=== PATIENT | female | born 2005 | race African-American/Black ===

== ENCOUNTER 2024-07-05 17:10 | Inpatient (IN) ==
--- NOTE | 2024-07-05 17:58 | Emergency Department Note ---
Impression & Plan Depression with suicidal ideation ED Provider Note NAME: SHAHAB LLOYD AGE: 18 SEX: F : 2005 ARRIVES VIA: Walk-In INFORMANT: Patient, CAPS report ED PROVIDER(S): Hunter Salguero MD CHIEF COMPLAINT: Suicidal ideation with plan, referral from's MEDICAL DECISION MAKING: Patient presents as a referral from Due to concern for suicidal ideation with plan. Blood work was obtained. Patient has very mild leukopenia with a normal hemoglobin and platelet count kidney function is unremarkable. Electrolytes grossly unremarkable. TSH normal. Urinalysis shows blood but the patient is currently on her menstrual period. UPT negative. Salicylate Tylenol alcohol negative. COVID-negative UDS negative. Patient was seen medically cleared seen and evaluated by psych correctional case records supervisor and referrals were made. Patient was accepted to [facility] for voluntary inpatient psychiatric treatment. Discussion w/ other healthcare providers: ED case management Prior /Outside records reviewed: None Differential diagnosis: Mood disorder, infection, hypoglycemia, electrolyte abnormalities, dehydration, medication side effect among others were considered. Diagnostics, as interpreted by me: ECG: None Medical decision rules: Suicide risk severity score Imaging studies: None HPI: Patient presents due to concern for mental wellness. The patient was seen in Today and had endorsed some suicidal ideation with plan to slit her wrist and bleed out. Patient does have a prior history of inpatient treatment for suicidal ideation. The patient was started on Lexapro 2 weeks ago. Thought that maybe the patient was having worsening suicidal ideation secondary to her medication. The patient also reports that she has had increasing academic stress and regular. Patient states that she is performing well but it is stressful. The patient denies any HI or AVH. She has been sleeping too much. She states her appetite is poor. Patient does not have any access to guns or weapons here on campus. Patient reports that there are guns in her home in her hometown but not here on campus. The patient does feel safe at her campus residence. Patient states she is currently on her menstrual period. PAST MEDICAL HISTORY: Depression PAST SURGICAL HISTORY: No pertinent past surgical history SOCIAL HISTORY: [employer] student. Speaks Amharic. Denies alcohol tobacco or drug use. HOME MEDICATIONS: See Below ALLERGIES: See Below VITALS: See Below PHYSICAL EXAMINATION: GENERAL: NAD, non-toxic. Wearing glasses. EYE EXAM: Normal conjunctiva. PERRL, no anisocoria and EOM's grossly intact w/o pain. OROPHARYNX: Moist mucus membranes, grossly normal dentition. NECK: Trachea midline, no stridor. LUNGS: Clear to auscultation. Normal chest wall mechanics. HEART: NSR, no MRG. ABDOMEN: Abdomen soft, non-tender, no masses, no rebound or guarding. BACK: No CVA TTP. SKIN: No rashes and no bruising. UPPER EXTREMITIES: Upper extremities are grossly normal. LOWER EXTREMITIES: Grossly normal, no edema. NEURO EXAM: A&O x3, cranial nerves II-XII grossly intact, normal speech, moves all 4 extremities. Psych: Positive SI with plan, denies HI or AVH. Past Med/Surg History Problem List Depression with suicidal ideation (Acute) Social History Smoking Status: Never smoker Preferred Language: Amharic Communication Ability: Effective Hammersmith Helper Required: No Beliefs That Will Affect Care: None Feels Safe at Home: Yes Gender Identity: Female Assistive Devices: Glasses Allergies Allergies Allergy/AdvReac Type Severity Reaction Status Date / Time No Known Allergies Allergy Unverified 07/05/24 19:39 Home Meds Home Medications Medication Instructions Recorded Confirmed dextroamphetamine-amphetamine 5 mg 5 mg PO QAM 07/05/23 07/05/24 tablet escitalopram oxalate 10 mg tablet 10 mg PO DAILY 07/05/24 07/05/24 topiramate 25 mg tablet 25 mg PO PM 07/05/24 07/05/24 Results & Data (ED) Vital Signs Vital Signs - 24 hr 07/05/24 17:12 07/05/24 18:56 07/05/24 20:00 Temperature 36.9 C 36.4 C Temperature Source Temporal Artery Scan Oral Pulse Rate 79 Pulse Rate [Finger] 74 Respiratory Rate 20 20 Respiratory Effort / Characteristics Non-Labored Spontaneous Non-Labored Respiratory Depth Normal Normal Blood Pressure 106/66 Blood Pressure [Right Arm] 109/74 Blood Pressure Mean 79 Blood Pressure Mean [Right Arm] 85 Pulse Oximetry 98 100 Oxygen Delivery Method Room Air Room Air Sepsis Recent Fever Within 48 Hours No Sepsis New/Unexplained Change in Mental Status No Sepsis Action Taken by Nursing No Action Required 07/05/24 20:28 Temperature Temperature Source Pulse Rate Pulse Rate [Finger] Respiratory Rate Respiratory Effort / Characteristics Non-Labored Respiratory Depth Normal Blood Pressure Blood Pressure [Right Arm] Blood Pressure Mean Blood Pressure Mean [Right Arm] Pulse Oximetry Oxygen Delivery Method Sepsis Recent Fever Within 48 Hours Sepsis New/Unexplained Change in Mental Status Sepsis Action Taken by Half-Way Medications Current Medication List: was personally reviewed by me Laboratory Data Attestation: I reviewed the patient's lab results. 07/05/24 17:38 07/05/24 17:38 Lab Results 07/05/24 07/05/24 07/05/24 Range/Units 17:24 17:38 17:58 WBC 4.60 L (4.8-10.8) K/ul RBC 3.84 L (4.20-5.40) M/uL Hgb 12.5 (12.0-16.0) g/dl Hct 36.1 L (37.0-47.0) % MCV 94.0 (80.0-100.0) fL MCH 32.6 (25.0-34.0) pg MCHC 34.6 (32.0-36.0) g/dL RDW Std Deviation 42.5 (36.4-46.3) fL RDW Coeff of Kaylyn 12.3 (11.5-14.5) % Plt Count 264 (130-400) K/uL MPV 11.4 (9.4-12.4) fL Immature Gran % (Auto) 0.2 % Neut % (Auto) 29.6 % Lymph % (Auto) 65.0 % [place] % (Auto) 4.8 % Eos % (Auto) 0.0 % Baso % (Auto) 0.4 % Neut # (Auto) 1.36 L (1.40-6.50) K/uL Lymph # (Auto) 2.99 (1.20-3.40) K/uL [place] # (Auto) 0.22 (0.11-0.59) K/uL Eos # (Auto) 0.00 (0.00-0.50) K/uL Baso # (Auto) 0.02 (0.00-0.20) K/uL Immature Gran # (Auto) 0.01 (0.01-0.20) K/uL Sodium 138 (136-145) mmol/L Potassium 3.6 (3.5-5.1) mmol/L Chloride 110 H (98-107) mmol/L Carbon Dioxide 20 L (21-32) mmol/L Anion Gap 8 (3-11) BUN 7 (6-23) mg/dl Creatinine 0.78 (0.6-1.2) mg/dl Est Cr Clr Drug Dosing 86.4 ml/min eGFR 112.14 BUN/Creatinine Ratio 9.0 L (10-20) Glucose 79 (70-99(Fasting)) mg/dl Calcium 9.6 (8.6-10.3) mg/dl Total Bilirubin 0.8 (0.2-1.0) mg/dl AST 16 (13-39) U/L ALT 8 (7-52) U/L Alkaline Phosphatase 53 (34-104) U/L Total Protein 7.5 (6.0-8.3) gm/dl Albumin 4.4 (3.4-5.0) gm/dl Globulin 3.1 (2.5-4.0) gm/dl Albumin/Globulin Ratio 1.4 (0.9-2) TSH 1.014 (0.300-4.500) uIu/ml Urine Color Yellow Urine Appearance Cloudy A (Clear) Urine pH 5.5 (4.5-7.5) Ur Specific [place] 1.020 (1.000-1.030) Urine Protein 1+ H (Negative) Urine Glucose (UA) Negative (Negative) Urine Ketones Trace H (Negative) Urine Blood 3+ H (Negative) Urine Nitrite Negative (Negative) Urine Bilirubin Negative (Negative) Urine Urobilinogen Negative (Negative) Ur Leukocyte Esterase 1+ H (Negative) Urine WBC (Auto) 0-5 (0-5) /hpf Urine RBC (Auto) >20 H (0-2) /hpf U Hyaline Cast (Auto) 0-2 (0-2) /lpf U Epithel Cells (Auto) 3-5 H (0-2) /hpf Urine Bacteria (Auto) None Seen (None Seen) Urine Test Negative (Negative) Salicylates < 3.0 L (3.0-30) mg/dl Urine Opiates Screen Neg (Neg) Ur Methadone, Qual Neg (Neg) Urine Fentanyl Screen Neg (Neg) Acetaminophen < 3 L (10-30) ug/ml Urine Barbiturates Neg (Neg) Ur Phencyclidine (PCP) Neg (Neg) U Amphetamin/Meth Scrn Neg (Neg) MDMA (Ecstasy) Screen Neg (Neg) U Benzodiazepines Scrn Neg (Neg) Ur Cocaine Metabolite Neg (Neg) U Marijuana (THC) Screen Neg (Neg) Ethyl Alcohol mg/dL < 10.0 (<10.0) mg/dl SARS-CoV-2, RNA, NAAT NEGATIVE (NEGATIVE) Administered Medications Hydroxyzine HCl (Hydroxyzine Hcl 25 Mg Tab) 25 mg PO Q4H PRN PRN Reason: Anxiety Stop: 08/04/24 20:59 Last Admin: 07/05/24 21:30 Dose: 25 mg Documented By: JAGDEEP Discharge Plan Visit Data Chief Complaint: Mental Health Evaluation Stated Complaint: MENTAL HEALTH EVAL ED Provider: Hunter Salguero Discharge Problem: Depression with suicidal ideation Patient Disposition: Admitted As Inpatient Discharge Instructions Interventions: ED Discharge Assessment Last Done: 07/05/24 21:17
[2024-07-05 18:15] LABS: Pregnancy Test, Urine Negative (Negative)
[2024-07-05 18:20] LABS: Hematocrit (blood only) 36.1 % (37.0-47.0); Hemoglobin 12.5 g/dl (12.0-16.0); Mean Corpuscular Hemoglobin 32.6 pg (25.0-34.0); Mean Corpuscular Hgb Conc 34.6 g/dL (32.0-36.0); Mean Platelet Volume 11.4 fL (9.4-12.4); Platelet Count 264 K/uL (130-400); RDW Coefficient of Variation 12.3 % (11.5-14.5); RDW Standard Deviation 42.5 fL (36.4-46.3); Red Blood Count 3.84 M/uL (4.20-5.40)
[2024-07-05 18:27] LABS: Appearance Urine Cloudy (Clear); Bacteria Urine Automated None Seen (None Seen); Bilirubin Urine Negative (Negative); Blood Urine 3+ (Negative); Cast Urine Automated 0-2 /lpf (0-2); Color Urine Yellow; Glucose Urine UA Negative (Negative); Ketones Urine Trace (Negative); Leukocyte Esterase Urine 1+ (Negative); Nitrite Urine Negative (Negative); Protein Urine 1+ (Negative); RBC Urine Automated >20 /hpf (0-2); Urobilinogen Urine Negative (Negative); WBC Urine Automated 0-5 /hpf (0-5); pH Urine 5.5 (4.5-7.5)
[2024-07-05 18:32] LABS: Potassium 3.6 mmol/L (3.5-5.1)
[2024-07-05 18:41] LABS: Basophils # (auto) 0.02 K/uL (0.00-0.20); Basophils % (auto) 0.4 %; Immature Granulocytes # (auto) 0.01 K/uL (0.01-0.20); Immature Granulocytes % (auto) 0.2 %; Lymphocytes # (auto) 2.99 K/uL (1.20-3.40); Monocytes # (auto) 0.22 K/uL (0.11-0.59); Monocytes % (auto) 4.8 %; Neutrophils # (auto) 1.36 K/uL (1.40-6.50); Neutrophils % (auto) 29.6 %
[2024-07-05 18:47] LABS: Thyroid Stimulating Hormone 1.014 uIu/ml (0.300-4.500)
[2024-07-05 19:18] LABS: Albumin Level 4.4 gm/dl (3.4-5.0); Bilirubin,Total 0.8 mg/dl (0.2-1.0); Calcium 9.6 mg/dl (8.6-10.3)
[2024-07-05 19:20] LABS: Acetaminophen < 3 ug/ml (10-30); Salicylate < 3.0 mg/dl (3.0-30)
[2024-07-05 19:24] LABS: Albumin Globulin Ratio 1.4 (0.9-2); Creatinine Clr Calc Pharmacy 86.4 ml/min; Globulin 3.1 gm/dl (2.5-4.0); Total Protein 7.5 gm/dl (6.0-8.3)
[2024-07-05 19:27] LABS: Amphetamines+Metham, Urine Neg (Neg); Barbiturates, Urine Neg (Neg); Benzodiazepine, Urine Neg (Neg); Cocaine, Urine Neg (Neg); Fentanyl, Urine Neg (Neg); MDMA (Ecstacy), Urine Neg (Neg); Marijuana, Urine Neg (Neg); Methadone, Urine Neg (Neg); Opiate, Urine Neg (Neg); Phencyclidine, Urine Neg (Neg)
[2024-07-05] MEDS ORDERED: BISMUTH SUBSALICYLATE 262 MG CHEW PO PRN (21:00)
[2024-07-05] MEDS ORDERED: hydrOXYzine HCl 25 MG TAB PO PRN (21:00)
[2024-07-05] MEDS ORDERED: SODIUM CHLORIDE 0.65% NA SOLN 45 ML (OCEAN) PRN (21:00)
[2024-07-05] MEDS ORDERED: ALUMINUM/MAGNESIUM SUSP 30 ML UDC PO PRN (21:00)
[2024-07-05] MEDS ORDERED: MAGNESIUM HYDROXIDE SUSP 30 ML UDC PO PRN (21:00)
[2024-07-05] MEDS: hydrOXYzine HCl 25 MG TAB PO PRN (21:30)
[2024-07-06] MEDS: ESCITALOPRAM OXALATE 10 MG TAB PO SCH (09:31)
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
[2024-07-07] MEDS: ARIPiprazole 5 MG TAB PO SCH (12:14)
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
[2024-07-07] MEDS: SUMAtriptan succinate 25 MG TAB PO ONE (14:24)
[2024-07-07] MEDS: hydrOXYzine HCl 25 MG TAB PO SCH (21:43)
[2024-07-08 07:29] LABS: Estimated Average Glucose 80 mg/dl; Hemoglobin A1C 4.4 % (4.5-5.6)
[2024-07-08 07:51] LABS: Chol HDL Ratio 2.7 (0-5)
--- NOTE | 2024-07-08 10:04 | Psychiatric Progress Note ---
Date of Service July 08, 2024 Impression / Recommendations Impression Dwight Dickens is a 18 y/o woman, [employer], lives with roommate h/o depression, body dysmorphia who self presents with suicidal ideations with plans and recent self harm (hitting self) in the context of anxiety, depression. She was admitted on 07/05/24 21:00 on a 201 voluntary commitment for suicidal ideation. A: Ongoing mood symptoms but depression lessening and working on ways to cope with anxiety using new CBT/DBT skills. Tolerating abilify so far without any side effects. HbA1c and fasting lipid panel reviewed and appropriate to continue with abilify. She requested we review side effects again for abilify. Reviewed side effects including but not limited to: movement (TD, NMS), cardiac (QTc prolongation), and metabolic (stroke, insulin resistance) and necessity for fasting lipid and glucose labwork (reviewed normal and reassuring for ongoing use) and AIMS done with score of 0. Overall, I spent a total of 40 minutes on this case including meeting with the patient, reviewing the chart, nursing report, multidisciplinary team meeting, orders, and documentation. (1) Depression with suicidal ideation: (2) Post traumatic stress disorder (PTSD): (3) Borderline personality disorder: (4) Cluster B personality disorder: (5) Body dysmorphic disorder: (6) Migraines: Plan 07/08/2024: Continue current medications and tx plan. 07/07/2024: Start aripiprazole 2.5 mg daily. Start sumatriptan 25 mg daily as needed for migraines. 07/06/2024:The patient was admitted to the [facility] ([facility] mental health unit) on q15 min checks (behavioral with suicide precautions) for safety. The patient will participate in group, recreational, and milieu therapies and will be offered additional individual and family sessions as clinically appropriate. -Continue home Escitalopram 10mg daily -Hold home Adderall, Topiramate -Questionnaires: [place] Borderline PD screener -Labs: Vit D, Vit B12, HgbA1C, Lipid panel Inventory Assets Strengths: Intelligent, Medication adherent Needs: Improved self esteem, coping skills Suicide Risk Level Suicide Risk Level: Moderate (q15 min suicide checks) (SI and depression on admission but mood improving, SI lessening and feels safe in the hospital and able to ask for support. 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 She was admitted on 07/05/24 21:00 on a 201 voluntary commitment for suicidal ideation. Chief Complaint "Like a rollercoaster". Review of Systems Sleep Information Total Hours of Sleep: 6.45 Sleep Comments: HS Vistaril Meal Information Percent Meal Consumed - Breakfast: 100 Percent Meal Consumed - Lunch: 85 Percent Meal Consumed - Dinner: 80 Subjective Subjective Patient was seen & assessed and interval progress reviewed with treatment team nursing and social work. Rated mood as "sleepy and anxious" last evening. Called yesterday about [employer] but unfortunately [facility] doesn't accept her insurance. Today mood has been variable. She wants to continue to work on ways to manage her "emotional regulation" and cope with anxiety. She's trying to use coping skills in favor of feeling like she needs to rely on prn medication. No side effects from abilify so far. SI lessening. Physical Exam Psychiatric Orientation: alert and oriented x 3 Apperance: appropriately dressed and appropriately groomed Eye Contact: + fair eye contact Motor Behavior: no abnormal motor movements Speech: normal rate/rhythm/volume of speech Affect: + constricted affect Mood: + depressed mood and + anxious mood Thought Process: goal directed thought process Thought Content: reality based without delusions Suicidal Thoughts: denies suicidal plan; + reports suicidal thoughts (inte rmittent, lessening) Homicidal Thoughts: denies homicidal thoughts Hallucinations: no auditory hallucinations and no visual hallucinations Insight: + fair insight Judgment: + fair judgement Vital Signs (Past 24 Hours) Last Vital Signs Temp 37.0 C 07/08/24 06:48 Pulse 86 07/07/24 06:51 Resp 16 07/08/24 06:48 BP 104/72 07/08/24 06:48 Pulse Ox 98 07/08/24 06:48 O2 Del Method Room Air 07/08/24 06:48 Results & Data ([facility]) Laboratory Results Laboratory Results - last 24 hr 07/08/24 06:54 Estimat Average Glucose 80 Hemoglobin A1c 4.4 L Triglycerides 64 Cholesterol 111 LDL Cholesterol, Calc 57 VLDL Cholesterol, Calc 13 HDL Cholesterol 41 Cholesterol/HDL Ratio 2.7 Vitamin B12 233 25-OH Vitamin D Total 20.7 Current Inpatient Medications Current Inpatient Medications: Current Inpatient Medications Acetaminophen (Acetaminophen 325 Mg Tab) 650 mg PO Q4H PRN PRN Reason: Headache or Minor Fever Stop: 08/04/24 20:59 Al Hydrox/Mg Hydrox/Simethicone (Aluminum/Magnesium Susp 30 Ml Udc) 30 ml PO Q4H PRN PRN Reason: GI Upset Stop: 08/04/24 20:59 Aripiprazole (Aripiprazole 5 Mg Tab) 2.5 mg PO QAM [facility] Stop: 08/06/24 11:44 Last Admin: 07/08/24 09:27 Dose: 2.5 mg Bismuth Subsalicylate (Bismuth Subsalicylate 262 Mg Chew) 2 tab PO Q30M PRN PRN Reason: Loose Stool/Diarrhea Stop: 08/04/24 20:59 Escitalopram Oxalate (Escitalopram Oxalate 10 Mg Tab) 10 mg PO QAM AUDREY Stop: 08/05/24 08:59 Last Admin: 07/08/24 09:27 Dose: 10 mg Hydroxyzine HCl (Hydroxyzine Hcl 25 Mg Tab) 25 mg PO Q4H PRN PRN Reason: Anxiety Stop: 08/04/24 20:59 Last Admin: 07/05/24 21:30 Dose: 25 mg Hydroxyzine HCl (Hydroxyzine Hcl 25 Mg Tab) 50 mg PO HSZ AUDREY Stop: 08/06/24 21:59 Last Admin: 07/07/24 21:43 Dose: 50 mg Magnesium Hydroxide (Magnesium Hydroxide Susp 30 Ml Udc) 30 ml PO DAILY PRN PRN Reason: Constipation Stop: 08/04/24 20:59 Sodium Chloride (Sodium Chloride 0.65% Na Soln 45 Ml ([place])) 1 - 2 sprays NA PRN PRN PRN Reason: Nasal Dryness/Congestion Stop: 08/04/24 20:59 Sumatriptan Succinate (Sumatriptan Succinate 25 Mg Tab) 25 mg PO DAILY PRN PRN Reason: Migraine Headache Stop: 08/07/24 08:59 Mental Health & Subst Abuse Tx Psychiatrist Name of Psychiatrist: [facility]-Dr. Almeida Psychiatrist's Date Of Appointment With Psychiatric Provider: 07/11/24 Time of Appointment with Psychiatrist: 10:20AM Psychiatric Appointment Comment: 40minute appointment in person Therapist Name of Therapist: Deepthi Rose - Therapist Therapist's Date of Therapist Appointment: 07/12/24 Time of Therapist Appointment: 12PM Therapy Appointment Comment: virtual appointment
[2024-07-09] MEDS ORDERED: LACTASE 3000 UNIT TAB PO PRN (09:46)
--- NOTE | 2024-07-09 09:46 | Psychiatric Progress Note ---
Date of Service July 09, 2024 Impression / Recommendations Impression Dwight Dickens is a 18 y/o woman, [employer] sophomore, lives with roommate h/o depression, body dysmorphia who self presents with suicidal ideations with plans and recent self harm (hitting self) in the context of anxiety, depression. She was admitted on 07/05/24 21:00 on a 201 voluntary commitment for suicidal ideation. A: Mood fluctuates during the day but improving overall and denies any SI. Hopeful for discharge tomorrow after support meeting. Given report of past cardiac murmur will get EKG to ensure QTc is normal. Overall, I spent a total of 38 minutes on this case including meeting with the patient, reviewing the chart, nursing report, multidisciplinary team meeting, orders, and documentation. (1) Depression with suicidal ideation: (2) Post traumatic stress disorder (PTSD): (3) Borderline personality disorder: (4) Body dysmorphic disorder: (5) Migraines: Plan 07/09/2024: EKG to assess QTc given report of past cardiac history of murmur and irregular heart rhythm in childhood. 07/08/2024: Continue current medications and tx plan. 07/07/2024: Start aripiprazole 2.5 mg daily. Start sumatriptan 25 mg daily as needed for migraines. 07/06/2024:The patient was admitted to the [facility] ([facility] mental health unit) on q15 min checks (behavioral with suicide precautions) for safety. The patient will participate in group, recreational, and milieu therapies and will be offered additional individual and family sessions as clinically appropriate. -Continue home Escitalopram 10mg daily -Hold home Adderall, Topiramate -Questionnaires: [place] Borderline PD screener -Labs: Vit D, Vit B12, HgbA1C, Lipid panel Inventory Assets Strengths: Intelligent, Medication adherent Needs: Improved self esteem, coping skills Suicide Risk Level Suicide Risk Level: Moderate (q15 min suicide checks) (SI and depression on admission but mood improving, denies SI and feels safe in the hospital and able to ask for support. ) Risk Factors Assessment Male: No : No Do You Have Access To A Gun?: Yes Health Problems: Yes Mental Health Diagnoses: Yes Substance Use Disorders: No Previous Attempt: No Family History of Suicide: No Previous Psychiatric Hospitalization: No Hopelessness: No Protective Factors Assessment Sabianist Beliefs: Yes : No Responsible for Young Children: No Employed: No Stable Relationships: Yes Supportive Family: Yes Good Rapport with Provider: Yes Absence of Any Risk Factors Above: No Interval History Identifying Information Dwight Dickens is a 18 y/o black female, [employer] 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 She was admitted on 07/05/24 21:00 on a 201 voluntary commitment for suicidal ideation. Chief Complaint "Mood fluctuating a lot". Review of Systems Sleep Information Total Hours of Sleep: 7.45 Sleep Comments: HS Vistaril Meal Information Percent Meal Consumed - Breakfast: 100 Percent Meal Consumed - Lunch: 75 Percent Meal Consumed - Dinner: 75 Subjective Subjective Patient was seen & assessed and interval progress reviewed with treatment team nursing and social work. Attending groups, interacting well with peers. Didn't sleep very well overnight due to frequent awakening to pee, she attributes to drinking a lot before bed while watching football game. Today reports mood has been fluctuating, started out good and then worsened which she attributes to having a headache. Encouraged to try Imitrex as tylenol was ineffective. Denies SI. Asks appropriate questions about her medications based on literature review of possible side effects. Denies any medication side effects currently. Tells me she was diagnosed with a heart murmur as a child and hasn't had to see cardiology since 2018 but thought at one point she had an irregular rhythm as a child. She is agreeable to EKG to ensure QTc is normal. Physical Exam Psychiatric Orientation: alert and oriented x 3 Apperance: appropriately dressed and appropriately groomed Eye Contact: good eye contact Motor Behavior: no abnormal motor movements Speech: normal rate/rhythm/volume of speech Affect: + anxious affect Mood: + depressed mood and + anxious mood Thought Process: goal directed thought process Thought Content: reality based without delusions Suicidal Thoughts: denies suicidal thoughts and denies suicidal plan Homicidal Thoughts: denies homicidal thoughts Hallucinations: no auditory hallucinations and no visual hallucinations Insight: + fair insight Judgment: + fair judgement Vital Signs (Past 24 Hours) Last Vital Signs Temp 36.6 C 07/09/24 06:51 Pulse 96 H 07/09/24 06:51 Resp 16 07/09/24 06:51 BP 113/75 07/09/24 06:51 Pulse Ox 98 07/09/24 06:51 O2 Del Method Room Air 07/09/24 06:51 Results & Data ([facility]) Current Inpatient Medications Current Inpatient Medications: Current Inpatient Medications Acetaminophen (Acetaminophen 325 Mg Tab) 650 mg PO Q4H PRN PRN Reason: Headache or Minor Fever Stop: 08/04/24 20:59 Al Hydrox/Mg Hydrox/Simethicone (Aluminum/Magnesium Susp 30 Ml Udc) 30 ml PO Q4H PRN PRN Reason: GI Upset Stop: 08/04/24 20:59 Aripiprazole (Aripiprazole 5 Mg Tab) 2.5 mg PO QAM [facility] Stop: 08/06/24 11:44 Last Admin: 07/09/24 08:46 Dose: 2.5 mg Bismuth Subsalicylate (Bismuth Subsalicylate 262 Mg Chew) 2 tab PO Q30M PRN PRN Reason: Loose Stool/Diarrhea Stop: 08/04/24 20:59 Escitalopram Oxalate (Escitalopram Oxalate 10 Mg Tab) 10 mg PO QAM AUDREY Stop: 08/05/24 08:59 Last Admin: 07/09/24 08:46 Dose: 10 mg Hydroxyzine HCl (Hydroxyzine Hcl 25 Mg Tab) 25 mg PO Q4H PRN PRN Reason: Anxiety Stop: 08/04/24 20:59 Last Admin: 07/05/24 21:30 Dose: 25 mg Hydroxyzine HCl (Hydroxyzine Hcl 25 Mg Tab) 50 mg PO HSZ AUDREY Stop: 08/06/24 21:59 Last Admin: 07/08/24 20:42 Dose: 50 mg Magnesium Hydroxide (Magnesium Hydroxide Susp 30 Ml Udc) 30 ml PO DAILY PRN PRN Reason: Constipation Stop: 08/04/24 20:59 Sodium Chloride (Sodium Chloride 0.65% Na Soln 45 Ml ([place])) 1 - 2 sprays NA PRN PRN PRN Reason: Nasal Dryness/Congestion Stop: 08/04/24 20:59 Sumatriptan Succinate (Sumatriptan Succinate 25 Mg Tab) 25 mg PO DAILY PRN PRN Reason: Migraine Headache Stop: 08/07/24 08:59 Mental Health & Subst Abuse Tx Psychiatrist [facility] Date Of Appointment With Psychiatric Provider: 07/11/24 Time of Appointment with Psychiatrist: 10:20AM Psychiatric Appointment Comment: 40minute appointment in person Therapist Name of Therapist: Deepthi Rose - Therapist Therapist's Date of Therapist Appointment: 07/12/24 Time of Therapist Appointment: 12PM Therapy Appointment Comment: virtual appointment Post Discharge Appointments Other #1: Name of Aftercare Appointment: Student Care & Advocacy - [facility] post hospitalization meeting Phone Number of Aftercare Appointment: [phone] Date of Aftercare Appointment: 07/13/24 Time of Aftercare Appointment: 1PM Aftercare Appointment Comment: Zoom [facility] email #2: Name of Aftercare Appointment: [facility] Mental health Resou rce medical appointment scheduler Viktor Awad Phone Number of Aftercare Appointment: [phone] Aftercare Appointment Comment: Call for assistance with scheduling mental health services
[2024-07-09] MEDS: ACETAMINOPHEN 325 MG TAB PO PRN (11:44)
[2024-07-09] MEDS: SUMAtriptan succinate 25 MG TAB PO PRN (13:44)
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
--- NOTE | 2024-07-12 09:54 | Electrocardiogram Report ---
Test Reason : Blood Pressure : */* mmHG Vent. Rate : 68 BPM Atrial Rate : 68 BPM P-R Int : 144 ms QRS Dur : 96 ms QT Int : 370 ms P-R-T Axes : 60 74 66 degrees QTcB Int : 393 ms Normal sinus rhythm with sinus arrhythmia Possible Left atrial enlargement Otherwise normal ECG When compared with ECG of 25-May-2024 12:52, No significant change Confirmed by Darren Duque ([id number]) on 07/12/2024 9:53:52 AM Referred By: REFERRED SELF Confirmed By: Darren Duque
== END 2024-07-10 12:43 | disposition home or self-care (01) | DRG 881 ==
LOC: ED 17:10 → 3S 21:00 → SUATTDRO 21:00 → 3S 21:17